=== PATIENT | male | born 1930 | race Caucasian/White ===

== ENCOUNTER 2018-12-04 16:04 | Inpatient (IN) | payer MEDICARE ==
[~2018-12-04] VITALS: Ht 167.6 cm; Wt 65.8 kg
[2018-12-04] MEDS ORDERED: ASPIRIN 81 MG TAB.CHEW PO ONE (16:15)
[2018-12-04 16:36] VITALS: BP_SYST 192
[2018-12-04 16:50] LABS: ANION GAP 7 (5-15); CALCIUM 8.7 mg/dL (8.4-11.0); CHLORIDE 102 mmol/L (98-107); CREATININE 0.98 mg/dL (0.55-1.30); GLUCOSE 111 mg/dL (70-99); POTASSIUM 3.8 mmol/L (3.5-5.1); SODIUM SERUM 135 mmol/L (136-145); UREA NITROGEN, BLOOD 20 mg/dL (8-21)
[2018-12-04 16:54] LABS: HEMATOCRIT 47.5 % (36-54); HEMOGLOBIN 16.2 g/dL (14.0-18.0); MEAN CORPUSCULAR HEMOGLOBIN 32 pg (27-31); MEAN CORPUSCULAR HGB CONC 34 % (32-36); MEAN CORPUSCULAR VOLUME 92 fL (79.0-98.0); RED BLOOD CELL COUNT(AUTO) 5.14 MIL/uL (4.2-6.2); RED CELL DISTRIBUTION WIDTH 13.4 % (9.0-15.0); WHITE BLOOD COUNT (AUTO) 8.2 K/uL (4.8-10.8)
[2018-12-04 16:55] LABS: BASOPHILS % (AUTO) 0.6 % (0.0-2.0); EOSINOPHILS # (AUTO) 0.1 K/uL (0.0-0.4); EOSINOPHILS % (AUTO) 0.7 % (0.0-4.0); LYMPHOCYTES # (AUTO) 1.3 K/uL (1.0-5.5); LYMPHOCYTES % (AUTO) 15.6 % (20.5-51.5); MONOCYTES # (AUTO) 0.4 K/uL (0.0-1.0); NEUTROPHILS # (AUTO) 6.4 K/uL (1.8-7.7); NEUTROPHILS % (AUTO) 78.1 % (40.0-70.0); PLATELET COUNT (AUTO) 146 K/uL (130-430); PROTHROMBIN TIME 9.9 SECS (9.5-12.5)
[2018-12-04 16:56] LABS: ALANINE AMINOTRANSFERASE 36 U/L (12-78); ALBUMIN 3.9 g/dL (3.4-4.8); ASPARTATE AMINOTRANSFERASE 27 U/L (10-37); TOTAL BILIRUBIN 0.7 mg/dL (0.0-1.0)
[2018-12-04] MEDS ORDERED: METOPROLOL TARTRATE 25 MG TABLET PO ONE (20:00)
[2018-12-04] MEDS ORDERED: POTA10TA15 PO (20:04)
[2018-12-04] MEDS ORDERED: LIP20 PO (20:04)
[2018-12-04] MEDS ORDERED: NITSL SL (20:04)
[2018-12-04] MEDS ORDERED: OMEP20CA10 PO (20:04)
[2018-12-04] MEDS ORDERED: ASA81 PO (20:04)
[2018-12-04] MEDS ORDERED: METO50TA7 PO (20:04)
[2018-12-04] MEDS ORDERED: FAMO20TA8 PO (20:04)
[2018-12-04] MEDS ORDERED: ISOS30TA6 PO (20:04)
[2018-12-04 20:55] VITALS: BP_SYST 177
[2018-12-04] MEDS ORDERED: NITROGLYCERIN 0.4 MG TAB.SUBL SL PRN (23:15)
[2018-12-04] MEDS ORDERED: FAMOTIDINE 20 MG TABLET PO PRN (23:15)
[2018-12-04] MEDS ORDERED: HYDROcodone/ACETAMIN 5-325 MG TAB (NORCO/ VICODIN) PO PRN (23:30)
[2018-12-04] MEDS ORDERED: LORazepam 2 MG/ML VIAL IVP PRN (23:30)
[2018-12-04] MEDS ORDERED: ONDANSETRON HCL 4 MG/2 ML VIAL IVP PRN (23:30)
[2018-12-04] MEDS ORDERED: ACETAMINOPHEN 325 MG TABLET PO PRN (23:30)
[2018-12-04] MEDS ORDERED: MORPHINE 4 MG/ML INJ. SYRINGE IVP PRN (23:30)
[2018-12-04] MEDS ORDERED: HYDROcodone/ACETAMIN 10-325 MG TAB PO PRN (23:30)
[2018-12-05] VITALS (8 sets, daily range): BP systolic 130–192
[2018-12-05] MEDS ORDERED: cefTRIAXone 1 GM in D5W 50 ML IV SCH ×2
[2018-12-05] MEDS: cefTRIAXone 1 GM IVPB PREMIX 50 ML IV ONE ×2 (00:27→00:31)
[2018-12-05] MEDS ORDERED: NORMAL SALINE 5 ML DISP.SYRIN IVF SCH ×2 (06:00)
[2018-12-05 07:01] LABS: ANION GAP 9 (5-15); CALCIUM 8.2 mg/dL (8.4-11.0); CHLORIDE 103 mmol/L (98-107); CREATININE 0.95 mg/dL (0.55-1.30); GLUCOSE 91 mg/dL (70-99); POTASSIUM 3.9 mmol/L (3.5-5.1); SODIUM SERUM 140 mmol/L (136-145); UREA NITROGEN, BLOOD 18 mg/dL (8-21)
[2018-12-05 07:10] LABS: ALANINE AMINOTRANSFERASE 31 U/L (12-78); ALBUMIN 3.3 g/dL (3.4-4.8); ASPARTATE AMINOTRANSFERASE 26 U/L (10-37); PHOSPHORUS 3.1 mg/dL (2.7-4.5); TOTAL BILIRUBIN 0.9 mg/dL (0.0-1.0)
[2018-12-05 07:21] LABS: HEMATOCRIT 45.4 % (36-54); HEMOGLOBIN 15.4 g/dL (14.0-18.0); RED BLOOD CELL COUNT(AUTO) 4.94 MIL/uL (4.2-6.2); WHITE BLOOD COUNT (AUTO) 7.3 K/uL (4.8-10.8)
[2018-12-05 07:22] LABS: BASOPHILS % (AUTO) 0.6 % (0.0-2.0); EOSINOPHILS # (AUTO) 0.2 K/uL (0.0-0.4); EOSINOPHILS % (AUTO) 2.2 % (0.0-4.0); MEAN CORPUSCULAR HEMOGLOBIN 31 pg (27-31); MEAN CORPUSCULAR HGB CONC 34 % (32-36); MEAN CORPUSCULAR VOLUME 92 fL (79.0-98.0); MONOCYTES # (AUTO) 0.6 K/uL (0.0-1.0); MONOCYTES % (AUTO) 8.5 % (1.7-9.3); NEUTROPHILS # (AUTO) 4.5 K/uL (1.8-7.7); NEUTROPHILS % (AUTO) 61.7 % (40.0-70.0); PLATELET COUNT (AUTO) 143 K/uL (130-430); RED CELL DISTRIBUTION WIDTH 13.7 % (9.0-15.0)
[2018-12-05] MEDS: OMEPRAZOLE 20 MG CAPSULE.DR (PriLOSEC) PO SCH ×2 (08:18→19:45)
[2018-12-05] MEDS: METOPROLOL SUCCINATE 50 MG TAB.SR.24H (TOPROL XL) PO SCH ×2 (08:20→19:45)
[2018-12-05] MEDS ORDERED: POTASSIUM CHLORIDE 10 MEQ TAB.PRT.SR PO SCH (09:00)
[2018-12-05] MEDS ORDERED: ASPIRIN 81 MG TAB.CHEW PO SCH (09:00)
[2018-12-05] MEDS ORDERED: ATORVASTATIN 20 MG TABLET PO SCH (09:00)
[2018-12-05] MEDS ORDERED: ISOSORBIDE MONONITRATE 30 MG TAB.ER.24H PO SCH (09:00)
== END 2018-12-05 21:30 | disposition short-term general hospital (02) | DRG 311 ==
LOC: SED 16:04 → STU 20:13 → SMU 20:13 → STU 21:01
PROVIDERS: ADMIT Preventive Medicine Preventive Medicine/Occupational Environmental Medicine; ATTEND Preventive Medicine Preventive Medicine/Occupational Environmental Medicine
DX: I24.9 Acute ischemic heart disease, unspecified (principal); E87.1 Hypo-osmolality and hyponatremia; E44.0 Moderate protein-calorie malnutrition; E11.65 Type 2 diabetes mellitus with hyperglycemia; I25.10 Atherosclerotic heart disease of native coronary artery without angina pectoris; R10.13 Epigastric pain; E78.00 Pure hypercholesterolemia, unspecified; E83.52 Hypercalcemia; I10 Essential (primary) hypertension; Z95.1 Presence of aortocoronary bypass graft; Z79.82 Long term (current) use of aspirin; Z79.84 Long term (current) use of oral hypoglycemic drugs; Z68.23 Body mass index [BMI] 23.0-23.9, adult
CPT/HCPCS: 36415; 71045; 80053; 82550-TC; 83735-TC; 83880; 84100-TC; 84484; 85025; 85379; 85610-TC; 85730-TC; 93005; 93306; 99285; G0378; J0696; J7060